=== PATIENT | male | born 1980 | race Caucasian/White ===

== ENCOUNTER → 2017-03-09 | Outpatient (CLI) | payer OTHER ==
[~2017-03-09] MED LIST: CAPOTEN100 MG PO; CIPRO 500MG TA500 MG PO; LORTAB 5/500 501 TAB PO; MOTRIN800 MG PO; PERCOCET 325 MG1 TA2 PO; PERCOCET 325 MG1 TAB PO; PERCOCET 5/321 UDTAB PO; POTASSIUM CITRA1 GRA PO; POTASSIUM CITRATE; PROTONIX 40MG T40 MG PO; TOPROL XL 50MG50 MG PO; TOPROL XL50 MG PO; UROCIT-K 5540 MG/TAB PO; ZOFRAN4 M1 PO
== END ==
LOC: COL.RAD 08:11
DX: N20.0 Calculus of kidney (principal); R10.12 Left upper quadrant pain

== ENCOUNTER → 2017-03-10 | Outpatient (CLI) | payer OTHER | LOC: COL.RAD 09:30 | DX: N20.2 Calculus of kidney with calculus of ureter (principal) ==

== ENCOUNTER 2017-03-17 05:10 | Day surgery (SDC) | payer OTHER ==
[2008-08-17 04:27] VITALS: BP 122/68
[~2017-03-17] VITALS: Ht 172.7 cm; Wt 99.1 kg
[2017-03-17 05:27] VITALS: BP 138/93; PULSE 79; TEMP 97.6
[2017-03-17] MEDS ORDERED: UROCIT-K 5540 MG/TAB PO (05:31)
[2017-03-17 08:33] VITALS: TEMP 97.6
[2017-03-17 08:50] VITALS: BP 125/83; PULSE 82
[2017-03-17 09:05] VITALS: BP 136/86; PULSE 76
[2017-03-17 09:20] VITALS: BP 134/59; PULSE 86
[2017-03-17 09:35] VITALS: BP 127/82; PULSE 80
== END 2017-03-17 09:55 | disposition home or self-care (01) ==
LOC: SDCO 05:10
DX: N20.2 Calculus of kidney with calculus of ureter (principal); Z87.442 Personal history of urinary calculi; F17.220 Nicotine dependence, chewing tobacco, uncomplicated
CPT/HCPCS: C1769; J0690; J1100; J1940; J2405; J2704; J2765; J3010; J7120; Q9967

== ENCOUNTER → 2017-04-20 | Outpatient (REF) | LOC: WSOH 16:15 | DX: Z02.89 Encounter for other administrative examinations (principal) ==

== ENCOUNTER → 2017-05-12 | Outpatient (CLI) | payer OTHER | LOC: COL.RAD 11:48 | DX: N20.0 Calculus of kidney (principal) ==

== ENCOUNTER → 2017-06-17 | Outpatient (REF) | LOC: WSOH 09:08 | DX: Z02.89 Encounter for other administrative examinations (principal) ==

== ENCOUNTER → 2017-06-20 | Outpatient (REF) | LOC: WSOH 15:15 | DX: Z02.89 Encounter for other administrative examinations (principal) ==

== ENCOUNTER → 2017-07-12 | Outpatient (REF) | LOC: WSOH 19:30 | DX: Z02.89 Encounter for other administrative examinations (principal) ==